=== PATIENT | male | born 1935 | race Caucasian/White ===

== ENCOUNTER 2020-12-05 14:55 | Emergency (ER) | payer MEDICARE ==
[~2020-12-05] VITALS: Ht 167.6 cm; Wt 74.8 kg
[2020-12-05 15:06] VITALS: BP 156/80
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
[2020-12-05] MEDS ORDERED: BACI1OIN7 TP (16:33)
[2020-12-05] MEDS ORDERED: ACET-2605 PO (16:33)
--- NOTE | 2020-12-05 16:49 | NUR ---
Patient discharged to home in stable condition. Written and verbal after care instructions given. Patient verbalizes understanding of instruction. Pt ambulatory with a steady gait
== END 2020-12-05 16:49 | disposition home or self-care (01) ==
LOC: ER 15:17
DX: S51.011A Laceration without foreign body of right elbow, initial encounter (principal); I10 Essential (primary) hypertension; Z95.818 Presence of other cardiac implants and grafts; V49.59XA Passenger injured in collision with other motor vehicles in traffic accident, initial encounter; Y93.89 Activity, other specified; Y92.413 State road as the place of occurrence of the external cause; Y99.8 Other external cause status
CPT/HCPCS: 73080-TC